=== PATIENT | male | born 1950 | race Caucasian/White ===

== ENCOUNTER 2021-05-12 06:15 | Emergency (ER) | payer MEDICARE ==
[~2021-05-12] VITALS: Ht 182.9 cm; Wt 90.7 kg
[~2021-05-12 06:15] MED LIST: ASPI81CH PO; ATOR40TA PO; FURO40 PO; HYDACE25S PR; HYDACE5 PO; IBUP600 PO; Keflex500 MG PO; MAGCHL64ER PO; MELA3 PO; Norco 5-325 Ta1 EACH PO; POTCHL20ER PO; Percocet 5-3251 EACH PO; Prinivil10 MG PO; SPIR25 PO; Toprol Xl50 MG PO
[2021-05-12 06:43] LABS: BASOPHILS ABSOLUTE AUTO 0.02 K/mm3 (0.00-0.23); BASOPHILS PERCENT AUTO 0 % (0-2); EOSINOPHILS ABSOLUTE AUTO 0.12 K/mm3 (0.00-0.68); EOSINOPHILS PERCENT AUTO 1 % (0-6); Hematocrit 49.9 % (37.0-53.0); Hemoglobin 16.1 g/dL (13.5-17.5); IMMATURE GRAN ABSOLUTE AUTO 0.01 K/mm3 (0.00-0.10); IMMATURE GRAN PERCENT AUTO 0 % (0-1); LYMPHOCYTES ABSOLUTE AUTO 1.06 K/mm3 (0.84-5.20); LYMPHOCYTES PERCENT AUTO 12 % (21-46); MONOCYTES ABSOLUTE AUTO 0.23 K/mm3 (0.16-1.47); MONOCYTES PERCENT AUTO 3 % (4-13); Mean Corpuscular HGB Conc 32.3 g/dL (31.5-36.5); Mean Corpuscular Volume 96 fL (80-100); Mean Platelet Volume 9.5 fL (9.1-12.4); NEUTROPHILS ABSOLUTE AUTO 7.37 K/mm3 (1.96-9.15); NEUTROPHILS PERCENT AUTO 84 % (41-73); Platelet Count 291 K/mm3 (150-400); RDW Coefficient Variation 12.9 % (11.7-14.2); RDW Standard Deviation 46.5 fL (35.1-46.3); Red Blood Cell Count 5.19 M/mm3 (4.30-5.90); White Blood Cell Count 8.81 K/mm3 (4.00-11.30)
[2021-05-12 07:00] LABS: Alanine Aminotransfer (ALT/SGP 173 U/L (12-78); Albumin, Blood 4.1 g/dL (3.4-5.0); Albumin/Globulin Ratio 0.8 (0.8-1.8); Alk Phos 141 U/L (50-136); Anion Gap 5 mmol/L (6-16); Aspartate Aminotrans (AST/SGOT 92 U/L (12-37); Bilirubin, Total 0.5 mg/dL (0.1-1.0); Blood Urea Nitrogen 13 mg/dL (8-24); Bun/Creatinine Ratio 15.6 (12.0-20.0); CO2, Blood 29 mmol/L (21-32); Calcium, Blood 8.9 mg/dL (8.5-10.1); Chloride, Blood 105 mmol/L (98-108); Creatinine, Blood 0.83 mg/dL (0.60-1.20); Globulin, Blood 5.2 g/dL (2.2-4.0); Glomerular Filtration Rate >60 (60-); Glucose, Blood 115 mg/dL (70-99); Potassium, Blood 3.8 mmol/L (3.5-5.5); Sodium, Blood 139 mmol/L (136-145); Total Protein, Blood 9.3 g/dL (6.4-8.2); Troponin I <0.015 ng/mL (0.000-0.040)
[2021-05-12 08:50] LABS: Source, Urine Clean Catch
[2021-05-12 08:54] LABS: Appearance, Urine Clear (Clear); Bilirubin, Urine Neg (Neg); Blood, Urine 4+ (Neg); Color, Urine Yellow (P-Yellow); Glucose Qualitative, Urine Neg (Neg); Ketones, Urine Neg (Neg); Leukocyte Esterase, Urine 2+ (Neg); Nitrite, Urine Pos (Neg); Protein, Urine Neg (Neg); Specific Gravity, Urine 1.015 (1.003-1.022); Urobilinogen, Urine NORM (Normal)
[2021-05-12 09:26] LABS: White Blood Cells, Urine 25-50 /hpf (0-5)
[2021-05-12 09:27] LABS: Bacteria Many /hpf; Squamous Epithelial Cells Not Seen /hpf (Few)
[2021-05-12 09:33] LABS: U Amphetamine Screen DETECTED; U Barbituate Screen Not Detected; U Benzodiazapine Screen Not Detected; U Methamphetamine Screen DETECTED
[2021-05-12 09:34] LABS: U Buprenorphine Screen Not Detected; U Cannabinoids Screen DETECTED; U Cocaine Screen Not Detected; U Methadone Screen Not Detected; U Opiates Screen DETECTED; U Oxycodone Screen Not Detected; U Phencyclidine Screen Not Detected; U Propoxyphene Screen Not Detected
[2021-05-12] MEDS ORDERED: HYDACE10B PO (10:33)
[2021-05-12] MEDS ORDERED: TAMS.4ER PO (10:33)
[2021-05-12] MEDS ORDERED: CEFP200 PO (10:33)
[2021-05-12 11:22] LABS: SARS-Cov-2 (COVID-19) PCR, MMC NEGATIVE (NEGATIVE)
== END 2021-05-12 23:20 | disposition home or self-care (01) ==
LOC: ER 06:15
PROVIDERS: Emergency Medicine
DX: N13.2 Hydronephrosis with renal and ureteral calculous obstruction (principal); F15.10 Other stimulant abuse, uncomplicated; D72.829 Elevated white blood cell count, unspecified; I10 Essential (primary) hypertension; I25.2 Old myocardial infarction; E78.5 Hyperlipidemia, unspecified; F17.210 Nicotine dependence, cigarettes, uncomplicated; Z79.899 Other long term (current) drug therapy; Z79.82 Long term (current) use of aspirin; Z20.822 Contact with and (suspected) exposure to COVID-19
CPT/HCPCS: 36556; 51701; 74018; 74177; 80053; 81001; 83690; 84484; 85025; 87077; 87086; 87186; 93005; 93010; 96361-59; 96365-59; 96375-59; 99285-25; C1751; J0696; J1170; J1885; J2060; J2270; J2405; J7030; J7060; Q9967; U0004

== ENCOUNTER 2021-07-16 12:03 | Emergency (ER) | payer MEDICARE ==
[~2021-07-16] VITALS: Ht 182.9 cm; Wt 90.7 kg
[~2021-07-16 12:03] MED LIST changes: +CEFP200 PO; +HYDACE10B PO; +TAMS.4ER PO
[2021-07-16 12:49] LABS: BASOPHILS ABSOLUTE AUTO 0.03 K/mm3 (0.00-0.23); BASOPHILS PERCENT AUTO 0 % (0-2); EOSINOPHILS ABSOLUTE AUTO 0.16 K/mm3 (0.00-0.68); EOSINOPHILS PERCENT AUTO 1 % (0-6); Hematocrit 44.7 % (37.0-53.0); Hemoglobin 14.9 g/dL (13.5-17.5); IMMATURE GRAN ABSOLUTE AUTO 0.05 K/mm3 (0.00-0.10); IMMATURE GRAN PERCENT AUTO 0 % (0-1); LYMPHOCYTES ABSOLUTE AUTO 1.46 K/mm3 (0.84-5.20); LYMPHOCYTES PERCENT AUTO 10 % (21-46); MONOCYTES ABSOLUTE AUTO 1.42 K/mm3 (0.16-1.47); MONOCYTES PERCENT AUTO 10 % (4-13); Mean Corpuscular HGB 30.6 pg (26.0-34.0); Mean Corpuscular HGB Conc 33.3 g/dL (31.5-36.5); Mean Corpuscular Volume 92 fL (80-100); Mean Platelet Volume 9.5 fL (9.1-12.4); NEUTROPHILS ABSOLUTE AUTO 11.22 K/mm3 (1.96-9.15); NEUTROPHILS PERCENT AUTO 78 % (41-73); Platelet Count 352 K/mm3 (150-400); RDW Coefficient Variation 12.9 % (11.7-14.2); RDW Standard Deviation 43.5 fL (35.1-46.3); Red Blood Cell Count 4.87 M/mm3 (4.30-5.90); White Blood Cell Count 14.34 K/mm3 (4.00-11.30)
[2021-07-16 13:04] LABS: Source, Urine Clean Catch
[2021-07-16 13:05] LABS: Alanine Aminotransfer (ALT/SGP 71 U/L (12-78); Albumin, Blood 3.2 g/dL (3.4-5.0); Albumin/Globulin Ratio 0.6 (0.8-1.8); Alk Phos 111 U/L (50-136); Anion Gap 5 mmol/L (6-16); Aspartate Aminotrans (AST/SGOT 41 U/L (12-37); Bilirubin, Total 0.4 mg/dL (0.1-1.0); Blood Urea Nitrogen 18 mg/dL (8-24); Bun/Creatinine Ratio 18.1 (12.0-20.0); CO2, Blood 27 mmol/L (21-32); Calcium, Blood 9.3 mg/dL (8.5-10.1); Chloride, Blood 107 mmol/L (98-108); Creatinine, Blood 0.99 mg/dL (0.60-1.20); Globulin, Blood 5.2 g/dL (2.2-4.0); Glomerular Filtration Rate >60 (60-); Glucose, Blood 131 mg/dL (70-99); Potassium, Blood 3.9 mmol/L (3.5-5.5); Sodium, Blood 139 mmol/L (136-145); Total Protein, Blood 8.4 g/dL (6.4-8.2)
[2021-07-16 13:08] LABS: Appearance, Urine Hazy (Clear); Bilirubin, Urine Neg (Neg); Blood, Urine 2+ (Neg); Color, Urine Yellow (P-Yellow); Glucose Qualitative, Urine Neg (Neg); Ketones, Urine Neg (Neg); Leukocyte Esterase, Urine 3+ (Neg); Nitrite, Urine Neg (Neg); Protein, Urine 1+ (Neg); Specific Gravity, Urine 1.025 (1.003-1.022); Urobilinogen, Urine NORM (Normal)
[2021-07-16 13:23] LABS: White Blood Cells, Urine 50-100 /hpf (0-5)
[2021-07-16 13:25] LABS: Bacteria Few /hpf; Mucus Light (0-Heavy); Squamous Epithelial Cells Few /hpf (Few)
[2021-07-16 16:50] LABS: SARS-Cov-2 (COVID-19) PCR, MMC NEGATIVE (NEGATIVE)
== END 2021-07-16 18:45 | disposition short-term general hospital (02) ==
LOC: ER 12:03
PROVIDERS: Emergency Medicine; Physician Assistant
DX: A41.9 Sepsis, unspecified organism (principal); N13.2 Hydronephrosis with renal and ureteral calculous obstruction; N39.0 Urinary tract infection, site not specified; I42.9 Cardiomyopathy, unspecified; I25.10 Atherosclerotic heart disease of native coronary artery without angina pectoris; Z20.822 Contact with and (suspected) exposure to COVID-19; I10 Essential (primary) hypertension; E78.5 Hyperlipidemia, unspecified; F17.210 Nicotine dependence, cigarettes, uncomplicated; Z79.82 Long term (current) use of aspirin; Z79.899 Other long term (current) drug therapy
CPT/HCPCS: 36415; 71045; 74177; 80053; 81001; 83605; 85025; 87086; 93005; 93010; 96365; 96375; 99285-25; J1170; J2405; J2543; J7030; Q9967; U0004

== ENCOUNTER 2023-10-16 18:57 | Emergency (ER) | payer MEDICARE, OTHER ==
[~2023-10-16] VITALS: Ht 182.9 cm; Wt 88.5 kg
[2023-10-16 19:50] LABS: BASOPHILS ABSOLUTE AUTO 0.04 K/mm3 (0.00-0.23); BASOPHILS PERCENT AUTO 1 % (0-2); EOSINOPHILS ABSOLUTE AUTO 0.22 K/mm3 (0.00-0.68); EOSINOPHILS PERCENT AUTO 3 % (0-6); Hematocrit 50.9 % (37.0-53.0); Hemoglobin 16.6 g/dL (13.5-17.5); IMMATURE GRAN ABSOLUTE AUTO 0.05 K/mm3 (0.00-0.10); IMMATURE GRAN PERCENT AUTO 1 % (0-1); LYMPHOCYTES PERCENT AUTO 10 % (21-46); MONOCYTES ABSOLUTE AUTO 0.91 K/mm3 (0.16-1.47); MONOCYTES PERCENT AUTO 11 % (4-13); Mean Corpuscular HGB 31.2 pg (26.0-34.0); Mean Corpuscular HGB Conc 32.6 g/dL (31.5-36.5); Mean Corpuscular Volume 96 fL (80-100); Mean Platelet Volume 9.6 fL (9.1-12.4); NEUTROPHILS ABSOLUTE AUTO 5.94 K/mm3 (1.96-9.15); NEUTROPHILS PERCENT AUTO 75 % (41-73); Platelet Count 252 K/mm3 (150-400); RDW Coefficient Variation 13.5 % (11.7-14.2); RDW Standard Deviation 47.6 fL (35.1-46.3); Red Blood Cell Count 5.32 M/mm3 (4.30-5.90); White Blood Cell Count 7.96 K/mm3 (4.00-11.30)
[2023-10-16 20:09] LABS: Alanine Aminotransfer (ALT/SGP 115 U/L (12-78); Albumin/Globulin Ratio 0.9 (0.8-1.8); Alk Phos 109 U/L (50-136); Anion Gap Unable to Calculate mmol/L (6-16); Aspartate Aminotrans (AST/SGOT 77 U/L (12-37); Bilirubin, Total 0.5 mg/dL (0.1-1.0); Blood Urea Nitrogen 14 mg/dL (8-24); Bun/Creatinine Ratio 18.2 (12.0-20.0); CO2, Blood 32 mmol/L (21-32); Calcium, Blood 9.2 mg/dL (8.5-10.1); Chloride, Blood 109 mmol/L (98-108); Creatinine, Blood 0.77 mg/dL (0.60-1.20); Globulin, Blood 4.3 g/dL (2.2-4.0); Glomerular Filtration Rate 96 (60-); Glucose, Blood 117 mg/dL (70-99); Potassium, Blood 4.6 mmol/L (3.5-5.5); Sodium, Blood 140 mmol/L (136-145); Total Protein, Blood 8.3 g/dL (6.4-8.2)
[2023-10-16 21:18] VITALS: BP 126/65
[2023-10-16 22:07] LABS: Influenza B, PCR NEGATIVE (NEGATIVE); Resp Syncytial Virus, PCR NEGATIVE (NEGATIVE); SARS-Cov-2 (COVID-19) PCR, MMC NEGATIVE (NEGATIVE)
[2023-10-16 22:12] LABS: Influenza A, PCR POSITIVE (NEGATIVE)
== END 2023-10-16 22:02 | disposition left against medical advice (07) ==
LOC: ER 18:57
PROVIDERS: Physician Assistant
DX: R05.9 Cough, unspecified (principal); Z53.29 Procedure and treatment not carried out because of patient's decision for other reasons; R06.02 Shortness of breath
CPT/HCPCS: 0241U; 71046; 80053; 83880; 84484; 85025

== ENCOUNTER 2023-10-18 11:33 | Inpatient (IN) | payer MEDICARE, OTHER ==
[~2023-10-18] VITALS: Ht 182.9 cm; Wt 84.6 kg
[~2023-10-18 11:33] MED LIST changes: -Acetaminophen325 M1 PO; -NICOTINE1 EAC1 TOP; -VISBIOME 112.51 EACH PO
[2023-10-18] MEDS ORDERED: Acetylcysteine 200 MG/ML 4ML Vial INH SCH (13:40)
[2023-10-18] MEDS ORDERED: NS 1,000 ML IV SCH (13:40)
[2023-10-18] MEDS ORDERED: FLU VACC QS2023-24(6MOS UP)/PF 60 MCG/0.5 ML SYRINGE IM SCH (13:50)
[2023-10-18] MEDS ORDERED: LORazepam 2 MG/ML 1ML Injection IV PRN (13:50)
[2023-10-18] MEDS ORDERED: Prochlorperazine Edisylate 10 mg Vial IV PRN (13:50)
[2023-10-18] MEDS ORDERED: Acetaminophen 325 MG TABLET PO PRN (13:50)
[2023-10-18] MEDS ORDERED: Azithromycin 500 MG in NS 250 ML IV SCH (14:00)
[2023-10-18] MEDS ORDERED: CefTRIAXone Sodium 2,000 MG in NS 100 ML IV SCH (14:00)
[2023-10-18 14:28] LABS: Base Excess Venous 2.1 mmol/L; Bicarbonate Venous 24.2 mmol/L (24.0-30.0); PCO2 Venous 64.1 mmHg (38-42); pH Blood Venous 7.27 (7.34-7.37)
[2023-10-18 15:53] VITALS: BP 118/80
[2023-10-18] MEDS ORDERED: Ipratropium/Albuterol SulF 2.5-0.5MG/3 ML Amp INH PRN (16:00)
--- NOTE | 2023-10-18 17:50 | NUR ---
PT ARRIVED TO U 17 APROX 1545 THIS AFTERNOON. PT IS REPORTED TO BE VERY [place]. PT RESPONDS TO LOUD VERBAL STIMULI, THEN APPEARS TO FALL BACK TO SLEEP VERY QUICKLY. FAMILY AT BEDSIDE TO PROVIDE HISTORY AND INFORMATION, PT IS TOO LETHARGIC TO ANSWER QUESTIONS AT THIS TIME. FAMILY AT BEDSIDE UPDATED ON PLAN OF CARE. BED IN LOWEST POSITION, CALL LIGHT IN REACH, BED ALARM ON FOR SAFETY. TELEMETRY WITH CONTINUOUS PULSE OX IN PLACE. WILL CONTINUE TO MONITOR AND TREAT. WILL GIVE REPORT TO NOC SHIFT RN AT END OF SHIFT.
[2023-10-18 19:35] VITALS: BP 135/78
[2023-10-18] MEDS ORDERED: Atorvastatin 40 MG Tab PO SCH (21:00)
[2023-10-19] VITALS: BP 114/86
[2023-10-19 03:44] VITALS: BP 138/83
[2023-10-19 04:01] LABS: Base Excess Venous 2.4 mmol/L; Bicarbonate Venous 25.6 mmol/L (24.0-30.0); PCO2 Venous 46.4 mmHg (38-42); pH Blood Venous 7.38 (7.34-7.37)
[2023-10-19 04:17] LABS: BASOPHILS ABSOLUTE AUTO 0.01 K/mm3 (0.00-0.23); BASOPHILS PERCENT AUTO 0 % (0-2); EOSINOPHILS PERCENT AUTO 0 % (0-6); Hematocrit 49.5 % (37.0-53.0); Hemoglobin 16.4 g/dL (13.5-17.5); IMMATURE GRAN ABSOLUTE AUTO 0.03 K/mm3 (0.00-0.10); IMMATURE GRAN PERCENT AUTO 0 % (0-1); LYMPHOCYTES ABSOLUTE AUTO 1.18 K/mm3 (0.84-5.20); LYMPHOCYTES PERCENT AUTO 12 % (21-46); MONOCYTES ABSOLUTE AUTO 0.68 K/mm3 (0.16-1.47); MONOCYTES PERCENT AUTO 7 % (4-13); Mean Corpuscular HGB 31.1 pg (26.0-34.0); Mean Corpuscular HGB Conc 33.1 g/dL (31.5-36.5); Mean Corpuscular Volume 94 fL (80-100); Mean Platelet Volume 9.9 fL (9.1-12.4); NEUTROPHILS ABSOLUTE AUTO 8.02 K/mm3 (1.96-9.15); NEUTROPHILS PERCENT AUTO 81 % (41-73); Platelet Count 220 K/mm3 (150-400); RDW Coefficient Variation 13.2 % (11.7-14.2); Red Blood Cell Count 5.27 M/mm3 (4.30-5.90); White Blood Cell Count 9.92 K/mm3 (4.00-11.30)
--- NOTE | 2023-10-19 04:18 | NUR ---
UPDATE THIS RN CALLED TO ROOM BY PCT. PATIENT DRY HEAVING INTO EMESIS BAG. PRN ANTI NAUSEA GIVEN PER EMAR. THIS RN AND PCT AT BEDSIDE, PATIENT IS DIAPHORETIC AND IS REPORTING DIZZINESS. BP REMAINED STABLE, NO CHANGES TO HR OR O2 NEEDS. PATIENT IS VERY LETHARGIC. WILL NOT OPEN EYES OR FOLLOW COMMANDS. CALL PACED TO HOSPITALIST DR. WOOD WITH UPDATE. ORDER RECIEVED FOR ADDITIONAL LABS, HEAD CT AND URINE TOX.
[2023-10-19 04:32] LABS: Calcium, Blood 8.4 mg/dL (8.5-10.1); Creatinine, Blood 0.53 mg/dL (0.60-1.20); Potassium, Blood 4.2 mmol/L (3.5-5.5)
--- NOTE | 2023-10-19 06:41 | NUR ---
SHIFT SUMMARY PATIENT RESPONDS TO VERBAL STIMULI BUT IS VERY [place]. ABLE TO ANSWER QUESTIONS BUT FALLS ASLEEP MID CONVERSATION. PATIENT WOULD RANDOMLY WAKE DURING THE SHIFT AND WOULD YELL OUT BUT OTHERWISE LETHARGIC. SEE PREVIOUS NOTE. BP STABLE. TELE READING SB-SR DURING THE NIGHT. PATIENT ON 2.5L NC WITH SPO2 >90%. PATIENT TURNING SELF IN BED WITH MINIMAL ASSISTANCE. MEDICATED PER EMAR FOR NAUSEA. NO OTHER CHANGES DURING THE NIGHT, WILL REPORT TO DAY SHIFT RN.
[2023-10-19 08:10] VITALS: BP 152/88
[2023-10-19] MEDS ORDERED: Furosemide 40 MG Tab PO SCH (09:00)
[2023-10-19] MEDS ORDERED: Nicotine 21 MG PATCH TOP SCH (09:00)
[2023-10-19] MEDS ORDERED: Aspirin 81 MG Chew PO SCH (09:00)
[2023-10-19] MEDS ORDERED: Spironolactone 25 MG Tab PO SCH (09:00)
[2023-10-19] MEDS ORDERED: Enoxaparin 40 MG/0.4 ML SYR SC SCH (09:00)
[2023-10-19] MEDS ORDERED: Metoprolol Succinate 50 MG TABCR PO SCH (09:00)
[2023-10-19 09:31] LABS: U Amphetamine Screen DETECTED; U Barbituate Screen Not Detected; U Benzodiazapine Screen Not Detected; U Buprenorphine Screen Not Detected; U Cannabinoids Screen Not Detected; U Cocaine Screen Not Detected; U Methadone Screen Not Detected; U Methamphetamine Screen DETECTED; U Opiates Screen Not Detected; U Oxycodone Screen Not Detected; U Phencyclidine Screen Not Detected
--- NOTE | 2023-10-19 10:46 | NUR ---
AM NOTE this rn assumed care at 0700. vital signs stable. tele sr 80s. patient responds to verbal stimuli and is oriented to self, person and place. patient falls asleep quickly and is lethargic. see shift assessment. md hallman in to see patient. daughter is at bedside. plan of care is up to date
[2023-10-19 11:29] VITALS: BP 123/71
[2023-10-19] MEDS ORDERED: Thiamine HCl 500 MG in NS 100 ML IV SCH (14:00)
--- NOTE | 2023-10-19 18:20 | NUR ---
SHIFT SUMMARY patient neuro remains unchanged. vitals stable. no acute changes this shift. plan of care remains up to date
[2023-10-19 20:51] VITALS: BP 128/98
[2023-10-20 00:49] VITALS: BP 125/77
[2023-10-20 03:13] VITALS: BP 132/89
[2023-10-20 05:50] LABS: BASOPHILS ABSOLUTE AUTO 0.02 K/mm3 (0.00-0.23); BASOPHILS PERCENT AUTO 0 % (0-2); EOSINOPHILS PERCENT AUTO 0 % (0-6); Hematocrit 48.8 % (37.0-53.0); Hemoglobin 15.9 g/dL (13.5-17.5); IMMATURE GRAN ABSOLUTE AUTO 0.05 K/mm3 (0.00-0.10); IMMATURE GRAN PERCENT AUTO 0 % (0-1); LYMPHOCYTES ABSOLUTE AUTO 1.06 K/mm3 (0.84-5.20); LYMPHOCYTES PERCENT AUTO 8 % (21-46); MONOCYTES ABSOLUTE AUTO 1.21 K/mm3 (0.16-1.47); MONOCYTES PERCENT AUTO 9 % (4-13); Mean Corpuscular HGB 30.6 pg (26.0-34.0); Mean Corpuscular HGB Conc 32.6 g/dL (31.5-36.5); Mean Corpuscular Volume 94 fL (80-100); Mean Platelet Volume 9.9 fL (9.1-12.4); NEUTROPHILS ABSOLUTE AUTO 11.37 K/mm3 (1.96-9.15); NEUTROPHILS PERCENT AUTO 83 % (41-73); Platelet Count 206 K/mm3 (150-400); RDW Coefficient Variation 13.2 % (11.7-14.2); RDW Standard Deviation 45.8 fL (35.1-46.3); Red Blood Cell Count 5.19 M/mm3 (4.30-5.90); White Blood Cell Count 13.71 K/mm3 (4.00-11.30)
--- NOTE | 2023-10-20 06:13 | NUR ---
SHIFT SUMMARY PATIENT WAKES TO VERBAL STIMULI BUT IS EXTREMELY [place]. ANSWERS ALL QUESTIONS APPROPRIATELY AND IS ABLE TO MAKE NEEDS KNOWN WHILE AWAKE. PATIENT WILL FALL ASLEEP MID CONVERSATION. BP STABLE, TELE READING SR W/ OCCASIONAL PVCs DURING THE NIGHT, DENIED CHEST PAIN. PATIENT ON 2L NC WITH SPO2 >90%. PATIENT USING URINAL WITH ASSISTANCE, ADEQUATE OUTPUT. PATIENT DID WAKE DURING THE NIGHT AND REQUESTED SOMETHING TO EAT, PATIENT TOLERATED APPLESAUCE. PATIENT TURNING/ADJUSTING SELF IN BED. NO OTHER CHANGES DURING THE NIGHT. WILL REPORT TO DAY SHIFT RN.
[2023-10-20 06:32] LABS: Bun/Creatinine Ratio 26.5 (12.0-20.0); Calcium, Blood 8.5 mg/dL (8.5-10.1); Creatinine, Blood 0.49 mg/dL (0.60-1.20); Potassium, Blood 3.9 mmol/L (3.5-5.5)
[2023-10-20 07:55] VITALS: BP 152/73
--- NOTE | 2023-10-20 12:01 | NUR ---
Call back - spoke with daughter ky before she left so pt could speak openly to this residential mortgage underwriter. Space given for Ru to discuss his admittance into hospital. He is able to verbalize seeing his choices have had consequences and asked for resources. Pt given a list of resources for drug and cigarette cessation. We discuss the benefits of support and accountability/filling time with positive activities. Pt verbalize gratitude for the interventions. 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 SW might be beneficial if further counseling resources needed when pt is discharged.
[2023-10-20 16:03] VITALS: BP 122/73
--- NOTE | 2023-10-20 16:19 | NUR ---
SHIFT SUMMARY/TRANSFER: PT WAS LETHARGIC THIS AM, BUT BECOMES MORE ALERT T/OUT THE DAY. PT ORIENTED TO SELF, FAMILY, PLACE, SITUATION. PT IS COOPERATIVE W/CARE, ABLE TO MAKE NEEDS KNOWN BUT IS QUITE [place]. PT DENIES SOB, RESP SHALLOW AND TACHYPNEIC, O2 SATS >92% ON 2 L/MIN NC. PT DENIES CP, SR ON MONITOR W/RATE 80s-90s, TELEMETRY DISCONTINUED. DIET HAS BEEN PROGRESSED TO HEART HEALTHY, PT TOLERATING WELL AND DRINKING FLUIDS INDEPENDENTLY, ABLE TO TAKE MEDS WHOLE W/WATER. PT STATUS HAS CHANGED TO MEDICAL, ROOM ASSIGNMENT RECEIVED, REPORT GIVEN TO JORDAN DARBY TO RECEIVE PT.
[2023-10-20 16:43] VITALS: BP 123/80
--- NOTE | 2023-10-20 16:56 | NUR ---
ASSUMED CARE NOTE ASSUMED CARE OF PT AT APPROX 1645. PT ARRIVED FROM PCU A&OX3, VSS, AMB W/ 1P ASSIST TO THE BED FROM W/C TRANSPORT, ON 2L O2 NC, AND USING HIS HEARING DEVICE PT IS [place]. PER REPORT GIVEN FROM PCU NURSE, PT TOLERATING PO AND VOIDING. PT DENIES PAIN AND WAS ENCOURAGED TO STAND AT THE BEDSIDE TO USE THE URINAL AND AMB IN THE ROOM W/ ASSISTANCE. PT ORIENTED TO ROOM AND CALL LIGHT. DAUGHTER AT THE BEDSIDE. PT ABLE TO MAKE NEEDS KNOWN.
[2023-10-20 20:19] VITALS: BP 125/80
[2023-10-20] MEDS ORDERED: NS 250 ML IV PRN (23:55)
[2023-10-21 04:00] VITALS: BP 135/76
[2023-10-21 07:52] VITALS: BP 124/89
--- NOTE | 2023-10-21 08:33 | NUR ---
SHIFT SUMMARY PT IS A&OX3, OFF ON DATE. VERY PLEASANT AND APPRECIATIVE OF EVERYTHING. [place] AND USES AN EXTERNAL HEARING DEVICE. VSS ON 2L NC. NO C/O PAIN. TOLERATING A HEART HEALTHY DIET. VOIDING INDEPENDENTLY IN URINAL AT BEDSIDE. NO BM THIS SHIFT. DAUGHTER AT BEDSIDE T/O NOC. BED IN LOWEST POSITION, CALL LIGHT WITHIN REACH. DROPLET PRECAUTIONS MAINTAINED FOR INFLUENZA A.
[2023-10-21 15:54] VITALS: BP 130/85
[2023-10-21 19:50] VITALS: BP 130/89
[2023-10-22 04:48] VITALS: BP 117/69
[2023-10-22 08:05] VITALS: BP 142/90
--- NOTE | 2023-10-22 08:09 | NUR ---
SHIFT SUMMARY NO ACUTE CHANGES FOR BRIAN OVER NIGHT. VSS ON 2L NC. DENIES PAIN. VERY [place], STILL USING EXTERNAL HEARING DEVICE. PT IS KIND, APPRECIATIVE, AND COOPERATIVE WITH CARES. TOLERATING DIET, POOR APPETITE. VOIDING INDEPENDENTLY IN URINAL. NO BM THIS SHIFT. BED IN LOWEST POSITION, CALL LIGHT WITHIN REACH.
[2023-10-22] MEDS ORDERED: Acetaminophen325 M1 PO (11:17)
[2023-10-22] MEDS ORDERED: ASPI81CH PO (11:18)
[2023-10-22] MEDS ORDERED: ATOR40TA PO (11:18)
[2023-10-22] MEDS ORDERED: FURO40 PO (11:20)
[2023-10-22] MEDS ORDERED: VISBIOME 112.51 EACH PO (11:21)
[2023-10-22] MEDS ORDERED: SPIR25 PO (11:21)
[2023-10-22] MEDS ORDERED: NICOTINE1 EAC1 TOP (11:21)
[2023-10-22] MEDS ORDERED: Prinivil10 MG PO (11:22)
[2023-10-22] MEDS ORDERED: MAGCHL64ER PO (11:22)
[2023-10-22] MEDS ORDERED: CEFP200 PO (11:22)
--- NOTE | 2023-10-22 13:57 | NUR ---
DC AT 1330- PT LEFT IN STABLE CONDITION WITH ALL BELONGINGS WITH SIG OTHER AND DAUGHTER. PT BROUGHT DOWN IN WC.
[2023-10-23 17:26] LABS: AMPHETAMINE,URN,QUANT 1509 ng/mL; MDA,URN,QUANT <200 ng/mL; MDEA,URN,QUANT <200 ng/mL; MDMA,URN,QUANT <200 ng/mL; METHAMPHETAMINE,URN,QUANT 6673 ng/mL; PHENTERMINE,URN,QUANT <200 ng/mL
== END 2023-10-22 13:40 | disposition home or self-care (01) | DRG 917 ==
LOC: ER 11:33 → MEDS 13:47 → PCU 13:47 → MEDS 10-20 16:51
PROVIDERS: ADMIT Internal Medicine
DX: T43.651A Poisoning by methamphetamines accidental (unintentional), initial encounter (principal); G92.8 Other toxic encephalopathy; J10.00 Influenza due to other identified influenza virus with unspecified type of pneumonia; J96.01 Acute respiratory failure with hypoxia; J44.0 Chronic obstructive pulmonary disease with (acute) lower respiratory infection; I10 Essential (primary) hypertension; E78.5 Hyperlipidemia, unspecified; I25.10 Atherosclerotic heart disease of native coronary artery without angina pectoris; F15.10 Other stimulant abuse, uncomplicated; F17.200 Nicotine dependence, unspecified, uncomplicated; R79.1 Abnormal coagulation profile; T50.915A Adverse effect of multiple unspecified drugs, medicaments and biological substances, initial encounter; I25.2 Old myocardial infarction; Z95.1 Presence of aortocoronary bypass graft; Z71.51 Drug abuse counseling and surveillance of drug abuser; Z71.6 Tobacco abuse counseling; Z79.82 Long term (current) use of aspirin; Z98.890 Other specified postprocedural states; R05.9 Cough, unspecified
CPT/HCPCS: 0241U; 36415; 70450; 71046; 71260; 80048; 80053; 82803; 83605; 83880; 84145; 84439; 84484; 85025; 85379; 93005; 93010; 94640; 94761; 94762; 96365-59; 96375-59; 97116; 97161; 99285-25; A9270; G0480; J0456; J0696; J0780; J1650; J3411; J7030; J7050; Q9967

== ENCOUNTER → 2023-10-18 | Outpatient (CLI) | payer MEDICARE, OTHER ==
[~2023-10-18] MED LIST changes: +Acetaminophen325 M1 PO; +NICOTINE1 EAC1 TOP; +VISBIOME 112.51 EACH PO
[2023-10-18 10:05] LABS: BASOPHILS ABSOLUTE AUTO 0.02 K/mm3 (0.00-0.23); BASOPHILS PERCENT AUTO 0 % (0-2); EOSINOPHILS PERCENT AUTO 0 % (0-6); Hemoglobin 15.9 g/dL (13.5-17.5); IMMATURE GRAN ABSOLUTE AUTO 0.05 K/mm3 (0.00-0.10); IMMATURE GRAN PERCENT AUTO 1 % (0-1); LYMPHOCYTES ABSOLUTE AUTO 0.84 K/mm3 (0.84-5.20); LYMPHOCYTES PERCENT AUTO 8 % (21-46); MONOCYTES ABSOLUTE AUTO 1.07 K/mm3 (0.16-1.47); MONOCYTES PERCENT AUTO 10 % (4-13); Mean Corpuscular HGB 30.6 pg (26.0-34.0); Mean Corpuscular HGB Conc 31.8 g/dL (31.5-36.5); Mean Corpuscular Volume 96 fL (80-100); Mean Platelet Volume 9.7 fL (9.1-12.4); NEUTROPHILS ABSOLUTE AUTO 8.28 K/mm3 (1.96-9.15); NEUTROPHILS PERCENT AUTO 81 % (41-73); Platelet Count 218 K/mm3 (150-400); RDW Coefficient Variation 13.5 % (11.7-14.2); RDW Standard Deviation 48.1 fL (35.1-46.3); White Blood Cell Count 10.26 K/mm3 (4.00-11.30)
[2023-10-18 10:17] LABS: Albumin, Blood 3.8 g/dL (3.4-5.0); Albumin/Globulin Ratio 0.9 (0.8-1.8); Bilirubin, Total 0.4 mg/dL (0.1-1.0); Bun/Creatinine Ratio 20.6 (12.0-20.0); Creatinine, Blood 0.97 mg/dL (0.60-1.20); Globulin, Blood 4.4 g/dL (2.2-4.0); Potassium, Blood 4.5 mmol/L (3.5-5.5); Total Protein, Blood 8.2 g/dL (6.4-8.2)
== END ==
LOC: LAB 09:58 → LAB SHORT 09:58
PROVIDERS: Chiropractor
DX: R09.02 Hypoxemia (principal)
CPT/HCPCS: 80053; 84484; 85025; 85379

== ENCOUNTER 2024-04-07 13:01 | Emergency (ER) | payer MEDICARE, OTHER ==
[~2024-04-07] VITALS: Ht 172.7 cm; Wt 92.5 kg
[~2024-04-07 13:01] MED LIST changes: +Acetaminophen325 M1 PO; +NICOTINE1 EAC1 TOP; +VISBIOME 112.51 EACH PO
[2024-04-07] MEDS ORDERED: Albuterol 2.5 MG/3 ML VIAL INH SCH (13:55)
[2024-04-07 14:32] LABS: BASOPHILS ABSOLUTE AUTO 0.04 K/mm3 (0.00-0.23); BASOPHILS PERCENT AUTO 1 % (0-2); EOSINOPHILS ABSOLUTE AUTO 0.55 K/mm3 (0.00-0.68); EOSINOPHILS PERCENT AUTO 7 % (0-6); Hematocrit 47.7 % (37.0-53.0); Hemoglobin 15.6 g/dL (13.5-17.5); IMMATURE GRAN ABSOLUTE AUTO 0.04 K/mm3 (0.00-0.10); IMMATURE GRAN PERCENT AUTO 1 % (0-1); LYMPHOCYTES ABSOLUTE AUTO 1.28 K/mm3 (0.84-5.20); LYMPHOCYTES PERCENT AUTO 15 % (21-46); MONOCYTES ABSOLUTE AUTO 0.38 K/mm3 (0.16-1.47); MONOCYTES PERCENT AUTO 5 % (4-13); Mean Corpuscular HGB 31.3 pg (26.0-34.0); Mean Corpuscular HGB Conc 32.7 g/dL (31.5-36.5); Mean Corpuscular Volume 96 fL (80-100); Mean Platelet Volume 9.7 fL (9.1-12.4); NEUTROPHILS PERCENT AUTO 73 % (41-73); Platelet Count 241 K/mm3 (150-400); RDW Coefficient Variation 13.2 % (11.7-14.2); RDW Standard Deviation 46.5 fL (35.1-46.3); Red Blood Cell Count 4.99 M/mm3 (4.30-5.90); White Blood Cell Count 8.39 K/mm3 (4.00-11.30)
[2024-04-07 14:56] LABS: Albumin, Blood 3.6 g/dL (3.4-5.0); Albumin/Globulin Ratio 0.9 (0.8-1.8); Bilirubin, Total 0.3 mg/dL (0.1-1.0); Bun/Creatinine Ratio 13.8 (12.0-20.0); Calcium, Blood 8.5 mg/dL (8.5-10.1); Creatinine, Blood 0.65 mg/dL (0.60-1.20); Globulin, Blood 3.9 g/dL (2.2-4.0); Potassium, Blood 4.4 mmol/L (3.5-5.5); Total Protein, Blood 7.5 g/dL (6.4-8.2)
[2024-04-07 16:39] VITALS: BP 126/70
[2024-04-07] MEDS ORDERED: Prednisone20 MG PO (16:40)
== END 2024-04-07 16:52 | disposition home or self-care (01) ==
LOC: ER 13:01
PROVIDERS: Emergency Medicine
DX: J44.1 Chronic obstructive pulmonary disease with (acute) exacerbation (principal); I10 Essential (primary) hypertension; I25.10 Atherosclerotic heart disease of native coronary artery without angina pectoris; I25.2 Old myocardial infarction; F17.210 Nicotine dependence, cigarettes, uncomplicated; Z95.1 Presence of aortocoronary bypass graft; Z79.82 Long term (current) use of aspirin; Z79.899 Other long term (current) drug therapy
CPT/HCPCS: 71045; 80053; 83880; 84484; 85025; 93005; 93010; 94644; 94664

== ENCOUNTER 2025-06-13 18:28 | Emergency (ER) | payer MEDICARE, OTHER ==
[~2025-06-13] VITALS: Ht 182.9 cm; Wt 90.7 kg
[~2025-06-13 18:28] MED LIST changes: +Prednisone20 MG PO
[2025-06-13 18:42] VITALS: BP 131/82
[2025-06-13] MEDS ORDERED: Lidocaine 4% 1 Patch TOP ONE (20:00)
[2025-06-13] MEDS ORDERED: OxyCODONE 10/Acetamin 325 TABLET PO ONE (20:00)
[2025-06-13] MEDS ORDERED: CYCL10 PO (21:06)
[2025-06-13] MEDS ORDERED: OXAYDO5 M1 PO (21:06)
[2025-06-13] MEDS ORDERED: METPRE4DP PO (21:06)
== END 2025-06-13 21:29 | disposition home or self-care (01) ==
LOC: ER 18:28
DX: M54.2 Cervicalgia (principal); I10 Essential (primary) hypertension; J44.9 Chronic obstructive pulmonary disease, unspecified; I25.10 Atherosclerotic heart disease of native coronary artery without angina pectoris; E78.5 Hyperlipidemia, unspecified; F17.210 Nicotine dependence, cigarettes, uncomplicated; Z79.82 Long term (current) use of aspirin; Z79.899 Other long term (current) drug therapy
CPT/HCPCS: 72125; 99283-25; A9270